=== PATIENT | male | born 1975 | race Caucasian/White ===

== ENCOUNTER → 2016-06-19 | Outpatient (CLI) | payer MEDICAID | LOC: FIMAGING 15:56 | PROVIDERS: ATTEND Nurse Practitioner | DX: M25.852 Other specified joint disorders, left hip (principal); M16.12 Unilateral primary osteoarthritis, left hip; R39.15 Urgency of urination ==

== ENCOUNTER → 2016-09-01 | Outpatient (CLI) | payer MEDICAID ==
[~2016-09-01] MED LIST: GADOBUTROL 10 ML VIAL IVP ONE
== END ==
LOC: FIMAGING 18:06
PROVIDERS: ATTEND Nurse Practitioner
DX: G83.9 Paralytic syndrome, unspecified (principal); R51 Headache
CPT/HCPCS: A9585

== ENCOUNTER 2017-07-29 09:04 | Emergency (ER) | payer MEDICAID ==
--- NOTE | 2017-07-29 09:45 | EDPHY ---
H & P Stated Complaint: L face/neck swelling - Personal History Current Tetanus/Diphtheria Vaccine: Yes Current Tetanus Diphtheria and Acellular Pertussis (TDAP): Yes - Medical/Surgical History Hx Asthma: No Hx Chronic Respiratory Disease: No Hx Diabetes: No Hx Cardiac Disease: No Hx Renal Disease: No Hx Cirrhosis: No Hx Alcoholism: No Hx HIV/AIDS: Yes Hx Splenectomy or Spleen Trauma: No Other PMH: HIV+, migraines, neuropathy, - Social History Smoking Status: Never smoked Time Seen by Provider: 07/29/17 09:28 HPI/ROS: CHIEF COMPLAINT: Left facial swelling x2 days HISTORY OF PRESENT ILLNESS: 42-year-old male HIV positive with undetectable viral load, on antiviral therapy, history of multiple ongoing/chronic odontogenic issues, is [place] and [place] complaining of 3 days of progressive left facial swelling, left mandible swelling, pain. No fever no chills no nausea no vomiting. No trauma. No visual disturbance. No diplopia. No otalgia. No otorrhea. No nuchal rigidity. REVIEW OF SYSTEMS: A ten point review of systems was performed and is negative with the exception of the items mentioned in the HPI PAST MEDICAL & SURGICAL HISTORY: HIV positive with undetectable viral load followed at the [facility]. SOCIAL HISTORY: Nonsmoker former nurse. PHYSICAL EXAM (Prior to examination, patient consented to physical exam, hands were washed and my usual and customary physical exam procedures followed) 1) GENERAL: Well-developed, well-nourished, alert and oriented. Appears nontoxic answering questions appropriately. Mentating appropriately.. 2) HEAD: Normocephalic, atraumatic 3) HEENT: Pupils equal, round, reactive to light bilaterally. Sclera anicteric. Oropharynx: Soft tissue swelling to the left mandibular region and left zygomatic region with associated tenderness. The skin overlying this region appears normal with no induration no erythema no lesions. Intraoral examination reveals poor dentition, multiple areas of discomfort particularly to the left maxillary molars with erythema to the gingiva. No evidence of definitive abscess no drainage. Floor of mouth soft with no evidence of Meño' s angina. Submental and submandibular regions are soft no induration, no erythema 4) NECK: Full range of motion, no meningeal signs. No adenopathy. No nuchal rigidity. 5) LUNGS: Clear auscultation bilaterally, no wheezes, no rhonchi, no retractions. 6) HEART: Regular rate and rhythm, no murmur, no heave, no gallop. 7) ABDOMEN: No guarding, no rebound, no focal tenderness, negative McBurney's, negative Hastings's, negative Rovsing's, negative peritoneal sign, 8) MUSCULOSKELETAL: Moving all extremities, no focal areas of tenderness, no obvious trauma. No peripheral edema or discoloration. 9) BACK: No CVA tenderness, no midline vertebral tenderness, no fluctuance, no step-off, no obvious trauma, no visual or palpable abnormality. 10) SKIN: No rash, no petechiae. 11) Psychiatric: Patient is oriented X 3, there is no agitation. DIFFERENTIAL DIAGNOSIS: In no particular order including but not limited to abscess, cellulitis, osteomyelitis, gingivitis (Conchita,Radha Jin) Constitutional: Initial Vital Signs Temperature (C) 36.8 C 07/29/17 09:10 Heart Rate 90 07/29/17 09:10 Respiratory Rate 16 07/29/17 09:10 Blood Pressure 127/86 H 07/29/17 09:10 O2 Sat (%) 96 07/29/17 09:10 O2 Delivery Mode Room Air Allergies/Adverse Reactions: acetaminophen [From Vicodin] Allergy (Verified 07/29/17 09:07) hydrocodone [From Vicodin] Allergy (Verified 07/29/17 09:07) Home Medications: Medication Instructions Recorded Amoxicillin/Clavulanate Pot 875 mg PO BID #14 tab 07/29/17 [Augmentin 875 mg tab] Calcium 07/29/17 Cyclobenzaprine 07/29/17 Descovy 200-25 mg Tablet 07/29/17 Gabapentin 07/29/17 Liver Complex 07/29/17 Percocet 5-325 mg Tablet 07/29/17 Tivicay 07/29/17 Vitamin C 07/29/17 Medical Decision Making ED Course/Re-evaluation: 9:44 a.m.: Care of patient under supervision of secondary Supervising physician Dr Lynnette Castillo with whom I discussed case. Plan will be establishment of IV, check creatinine, CT imaging of the maxillofacial region with IV contrast to evaluate for deep space infection such as abscess. Discussed this with patient and he consents. 10:59 a.m.: I discussed the CT maxillofacial results with the staff radiologist and with the patient showing no deep space infection, no abscess. He is noted to have an opacified maxillary sinus as well as soft tissue swelling. At this time I think the patient can be treated on outpatient basis. I am starting him on Augmentin. Today is Sunday of the . I recommend he contact his dentist and oral surgeon on Sunday. In the meantime should she develop fevers, chills or any other symptoms needs to return to the ER immediately for re-evaluation. He feels comfortable being discharged. Usual and customary discharge precautions and instructions provided (Radha Arango) The patient was evaluated and managed by the physician library services assistant. I have reviewed this chart and I agree with the findings and plan of care as documented , as indicated by my signature. I am the secondary supervising physician. ( Lynnette Castillo) Departure - Departure Disposition: Home, Routine, Self-Care Clinical Impression: Maxillary sinusitis, acute, Odontalgia Condition: Good Instructions: Amoxicillin/Clavulanate Potassium (By mouth), Sinusitis (ED) Additional Instructions: Return to the ER immediately if you cannot swallow, have drooling, fevers, neck stiffness, cannot open your jaw, or any other symptoms that concern you. Referrals: Call, your dentist on Sunday. [Other] - As per Instructions Prescriptions: Amoxicillin/Clavulanate Pot [Augmentin 875 mg tab] 875 mg PO BID #14 tab
[2017-07-29] MEDS ORDERED: IOPAMIDOL (ISOVUE-300) 100 ML BTL ONE (10:00)
[2017-07-29 11:12] VITALS: BP 131/88
== END 2017-07-29 11:11 | disposition home or self-care (01) ==
DX: J32.0 Chronic maxillary sinusitis (principal); K08.89 Other specified disorders of teeth and supporting structures
CPT/HCPCS: 82947-QW; Q9967